=== PATIENT | male | born 1965 | race African-American/Black ===

== ENCOUNTER 2023-11-16 20:39 | Emergency (ER) | payer MEDICAID ==
[~2023-11-16] VITALS: Ht 188 cm; Wt 88.0 kg
[2023-11-16 20:48] VITALS: O2SAT 99
[2023-11-16 23:08] VITALS: BP 157/98; PULSE 85; RESP 18; TEMP 98.7
== END 2023-11-16 23:14 | disposition home or self-care (01) ==
LOC: ER 20:39
DX: M19.071 Primary osteoarthritis, right ankle and foot (principal)
CPT/HCPCS: 73630; 99283; Z7610